=== PATIENT | male | born 1935 ===

== ENCOUNTER 2021-10-05 08:51 | Day surgery (SDC) | payer MEDICARE, OTHER ==
[2021-10-05] MEDS ORDERED: Sodium Chloride 0.9% 10 ML Syringe IV ONE (08:52)
[2021-10-05] MEDS ORDERED: Midazolam 1 MG/ML 2 ML SDV IV ONE (08:52)
[2021-10-05] MEDS ORDERED: Dexamethasone 4 MG/ML SDV IV ONE (08:52)
[2021-10-05] MEDS ORDERED: Cataract Ophth Solution EYELF ONE (09:15)
[2021-10-05] MEDS ORDERED: Povidone-Iodine 5% Sterile Ophth Soln 30 ML Bottle EYELF ONE ×2 (09:15→10:31)
[2021-10-05] MEDS ORDERED: Phenylephrine 10% Ophth Soln 5 ML Bot EYELF ONE (09:15)
[2021-10-05] MEDS ORDERED: Sodium Chloride 0.9% 10 ML Syringe FLUSH PRN (09:15)
[2021-10-05] MEDS ORDERED: Proparacaine 0.5% Ophth Soln 15 ML Bottle EYELF ONE (09:15)
[2021-10-05] MEDS ORDERED: Timolol Maleate 0.5% Ophth Soln 5 ML Bottle EYELF ONE (09:15)
[2021-10-05] MEDS ORDERED: Acetaminophen 325 MG Tab PO PRN (09:15)
[2021-10-05] MEDS ORDERED: Acetaminophen/Codeine 300-30 MG Tab PO PRN (09:15)
[2021-10-05] MEDS ORDERED: Moxifloxacin 0.5% Ophth Soln 3 ML Bottle EYELF ONE (09:15)
[2021-10-05] MEDS ORDERED: Tropicamide 1% Ophth Soln 15 ML Bottle EYELF ONE (09:15)
[2021-10-05] MEDS ORDERED: Ondansetron 4 MG/2 ML SDV IVPUSH PRN (09:15)
[2021-10-05] MEDS ORDERED: Apraclonidine 0.5% Ophth Soln 5 ML Bot EYELF ONE (10:31)
[2021-10-05] MEDS ORDERED: Tetracaine HCl/PF 0.5% 4 ML Bottle EYELF ONE (10:31)
[2021-10-05] MEDS ORDERED: Lidocaine 1% 30 ML SDV ONE (10:31)
[2021-10-05] MEDS ORDERED: Dexamethasone/Neomycin/Polymyxin B Ophth Oint 3.5 GM Tube EYELF ONE (10:32)
[2021-10-05] MEDS ORDERED: Vancomycin 500 MG SDV EYELF ONE (10:32)
[2021-10-05] MEDS ORDERED: Diclofenac Sodium 0.1% Ophth Soln 5 ML Bottle EYELF ONE (10:32)
[2021-10-05] MEDS ORDERED: Balanced Salt Solution Ophth Irrig 500 ML Bottle IOCULAR ONE (10:32)
[2021-10-05] MEDS ORDERED: Chondroitin Sulfate/Hyaluronate Sodium Ophth Inj 0.5 ML Syringe IOCULAR ONE (10:33)
== END 2021-10-05 11:42 | disposition home or self-care (01) ==
LOC: DL.SDS 08:51
PROVIDERS: ATTEND Ophthalmology
DX: H25.812 Combined forms of age-related cataract, left eye (principal); F41.9 Anxiety disorder, unspecified; J45.909 Unspecified asthma, uncomplicated; I48.91 Unspecified atrial fibrillation; I10 Essential (primary) hypertension; E03.9 Hypothyroidism, unspecified; G25.0 Essential tremor; Z79.890 Hormone replacement therapy; Z98.890 Other specified postprocedural states; Z79.899 Other long term (current) drug therapy
CPT/HCPCS: 00142; A9270-GY; J1100; J2250; J3370; J3490; V2632

== ENCOUNTER 2021-10-19 08:52 | Day surgery (SDC) | payer MEDICARE, OTHER ==
[2021-10-19] MEDS ORDERED: Dexamethasone 4 MG/ML SDV IV ONE (08:53)
[2021-10-19] MEDS ORDERED: Midazolam 1 MG/ML 2 ML SDV IV ONE (08:53)
[2021-10-19] MEDS ORDERED: Timolol Maleate 0.5% Ophth Soln 5 ML Bottle EYERT ONE (09:15)
[2021-10-19] MEDS ORDERED: Sodium Chloride 0.9% 10 ML Syringe FLUSH PRN (09:15)
[2021-10-19] MEDS ORDERED: Tropicamide 1% Ophth Soln 15 ML Bottle EYERT ONE (09:15)
[2021-10-19] MEDS ORDERED: Cataract Ophth Solution EYERT ONE (09:15)
[2021-10-19] MEDS ORDERED: Povidone-Iodine 5% Sterile Ophth Soln 30 ML Bottle EYERT ONE ×2 (09:15→10:16)
[2021-10-19] MEDS ORDERED: Moxifloxacin 0.5% Ophth Soln 3 ML Bottle EYERT ONE (09:15)
[2021-10-19] MEDS ORDERED: Acetaminophen 325 MG Tab PO PRN (09:15)
[2021-10-19] MEDS ORDERED: Phenylephrine 10% Ophth Soln 5 ML Bot EYERT ONE (09:15)
[2021-10-19] MEDS ORDERED: Ondansetron 4 MG/2 ML SDV IVPUSH PRN (09:15)
[2021-10-19] MEDS ORDERED: Acetaminophen/Codeine 300-30 MG Tab PO PRN (09:15)
[2021-10-19] MEDS ORDERED: Proparacaine 0.5% Ophth Soln 15 ML Bottle EYERT ONE (09:15)
[2021-10-19] MEDS ORDERED: Tetracaine HCl/PF 0.5% 4 ML Bottle EYERT ONE (10:16)
[2021-10-19] MEDS ORDERED: Lidocaine 1% 30 ML SDV ONE (10:16)
[2021-10-19] MEDS ORDERED: Diclofenac Sodium 0.1% Ophth Soln 5 ML Bottle EYERT ONE (10:17)
[2021-10-19] MEDS ORDERED: Dexamethasone/Neomycin/Polymyxin B Ophth Oint 3.5 GM Tube EYERT ONE (10:17)
[2021-10-19] MEDS ORDERED: Balanced Salt Solution Ophth Irrig 500 ML Bottle IOCULAR ONE (10:17)
[2021-10-19] MEDS ORDERED: Apraclonidine 0.5% Ophth Soln 5 ML Bot EYERT ONE (10:17)
[2021-10-19] MEDS ORDERED: Vancomycin 500 MG SDV EYERT ONE (10:17)
[2021-10-19] MEDS ORDERED: Chondroitin Sulfate/Hyaluronate Sodium Ophth Inj 0.5 ML Syringe IOCULAR ONE (10:18)
== END 2021-10-19 11:27 | disposition home or self-care (01) ==
LOC: DL.SDS 08:52
PROVIDERS: ATTEND Ophthalmology
DX: H25.811 Combined forms of age-related cataract, right eye (principal); F41.9 Anxiety disorder, unspecified; J45.909 Unspecified asthma, uncomplicated; I48.91 Unspecified atrial fibrillation; I10 Essential (primary) hypertension; G25.0 Essential tremor; E03.9 Hypothyroidism, unspecified; Z98.890 Other specified postprocedural states; Z79.899 Other long term (current) drug therapy
CPT/HCPCS: A9270-GY; J1100; J2250; J3370; V2632

== ENCOUNTER 2024-06-06 13:09 | Observation (INO) | payer MEDICARE, OTHER ==
[2024-06-06] MEDS: Potassium Chloride 20 MEQ in Premix Bag 1 BAG IV SCH (14:28)
[2024-06-06] MEDS ORDERED: Potassium Chloride 20 MEQ in Premix Bag 1 BAG IV SCH (15:00)
[2024-06-06] MEDS ORDERED: Ondansetron 4 MG/2 ML SDV IVPUSH PRN (17:04)
[2024-06-06] MEDS ORDERED: Albuterol 0.083% 2.5 MG/3 ML Neb Soln NEB PRN (17:13)
[2024-06-06] MEDS ORDERED: Sodium Chloride 0.9% 10 ML Syringe FLUSH PRN (17:26)
[2024-06-06] MEDS: Potassium Chloride 10 MEQ Tab.ER PO SCH (20:38)
[2024-06-07 00:38] LABS: ANION GAP 9.4 mEq/L (7-13); CALCIUM 8.2 mg/dL (8.5-10.1); EST CRCL DRUG DOSING (CG) 26.51 mL/min; POTASSIUM,K 4.4 mmol/L (3.5-5.1)
[2024-06-07 08:20] LABS: ANION GAP 7.5 mEq/L (7-13); CALCIUM 8.4 mg/dL (8.5-10.1); CREATININE 1.91 mg/dL (0.70-1.30); EST CRCL DRUG DOSING (CG) 27.76 mL/min; POTASSIUM,K 3.5 mmol/L (3.5-5.1)
== END 2024-06-07 11:55 | disposition home or self-care (01) ==
LOC: DL.IVTHER 13:09 → DL.MS 15:53
PROVIDERS: ADMIT Family Medicine; ATTEND Family Medicine
DX: E87.6 Hypokalemia (principal)
CPT/HCPCS: 36415; 80048; A9270; J3480; 96365; 96366; 96376; G0378